=== PATIENT | female | born 1965 | race Caucasian/White ===

== ENCOUNTER 2022-10-23 21:24 | Observation (INO) | payer OTHER ==
--- OUTSIDE RECORDS SUMMARY | 2022-10-23 21:26 | XMS REPORT | Continuity of Care Document ---
:1965 Author Organization [facility] t Address [address] [facility] [address] [place] [address] Care Team Providers Name Role Phone Unavailable Unavailable Unavailable Problems This patient has no known problems. Allergies, Adverse Reactions, Alerts This patient has no known allergies or adverse reactions. Medications This patient has no known medications. Procedures This patient has no known procedures. Encounters Start End Encounter Admission Attending Care Care Encounter Source Date/Time Date/Time Type Type Clinicians Facility Department ID 2022-10-19 2022-10-19 Outpatient SFA S[facility] [place] 07:27:29 07:27:29 [id number] F Benjamin 2022-10-18 2022-10-18 Outpatient [facility] [place] 10:47:06 10:47:06 [id number] F Benjamin 2022-10-12 2022-10-12 Outpatient SFA [facility] [place] 07:25:56 07:25:56 [id number] F Benjamin 2022-08-13 2022-08-13 Outpatient SFA SFA [id number] [place] 13:05:11 13:05:11 [id number] F Benjamin 2022-08-03 2022-08-03 Outpatient SFA [facility] [place] 07:24:49 07:24:49 [id number] F Benjamin 2022-07-27 2022-07-27 Outpatient SFA SFA [id number] [place] 07:28:13 07:28:13 [id number] F Benjamin 2022-06-16 2022-06-16 Outpatient SFA SFA [id number] [place] 14:52:04 14:52:04 [id number] Benjamin Results This patient has no known results.
[2022-10-23 22:24] LABS: Absolute Lymphocytes (CBC) 4.1 K/uL (0.7-4.9); Hematocrit 43.7 % (36.0-45.0); Lymphocytes % 34.1 % (15.3-44.8); MCV 93.1 fL (80-100); MPV 8.5 fL (7.6-11.3); Platelets 201 thou/uL (152-406); RBC Red Blood Cell Count 4.69 M/uL (3.86-4.86)
[2022-10-23] MEDS ORDERED: MORPHINE 4 MG/ML SYR ONE (22:27)
[2022-10-23] MEDS ORDERED: NITROGLYCERIN 0.4 MG/TAB SL ONE (22:27)
[2022-10-23] MEDS ORDERED: ONDANSETRON 4 MG/2 ML VIAL ONE (22:27)
[2022-10-23 22:39] LABS: Albumin 3.3 g/dL (3.4-5.0); Bilirubin Total 0.6 mg/dL (0.2-1.0); Protein, Total 6.9 g/dL (6.4-8.2); Troponin High Sensitivity 38.1 pg/mL (<58.9)
[2022-10-23 22:40] LABS: Magnesium 2.2 mg/dL (1.6-2.4); Potassium 4.8 mEq/L (3.5-5.1)
--- NOTE | 2022-10-23 22:54 | EDPHYS ---
Physician Documentation [facility] Name: Gila Graham Age: 57 yrs Sex: Female : 1965 Arrival Date: 10/23/2022 Time: 21:24 Bed 17 Private MD: ED Physician Maeve Murcia HPI: 10/23 22:21 This 57 yrs old Female presents to ER via Ambulatory with complaints of Chest Pain, sd2 Chest Tightness, Arm Pain. 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 Denies having symptoms like this previously. No prior cardiac hx or significant risk factors for PE. Denies SOB, n/v or diaphoresis. . Historical: - Allergies: 21:44 Aspirin; ll3 - Home Meds: 21:44 levothyroxine oral [Active]; Lisinopril Oral [Active]; carvedilol oral [Active]; ll3 pantoprazole oral [Active]; Oxybutynin Chloride Oral [Active]; atorvastatin oral [Active]; - PMHx: 21:44 Hypertensive disorder; Hypercholesterolemia; Hypothyroidism; ll3 - PSHx: 21:44 Appendectomy; ll3 - Immunization history:: Client reports having NOT received the Covid vaccine. - Social history:: Smoking status: Patient denies any tobacco usage or history of. ROS: 22:21 Constitutional: Negative for fever, chills, and weight loss, Eyes: Negative for injury, sd2 pain, redness, and discharge. 22:21 Respiratory: Negative for shortness of breath, cough, wheezing. Abdomen/GI: Negative for abdominal pain, nausea, vomiting, diarrhea. MS/Extremity: Negative for injury and deformity, Skin: Negative for injury, rash, and discoloration, Neuro: Negative for headache, numbness and tingling. 22:21 Cardiovascular: Positive for chest pain, Negative for edema, palpitations. Exam: 22:21 Constitutional: This is a well developed, well nourished patient who is awake, alert, sd2 and in no acute distress. Head/Face: Normocephalic, atraumatic. Eyes: EOMI, normal conjunctiva bilaterally Chest/axilla: Normal chest wall appearance and motion. Nontender with no deformity. Cardiovascular: Regular rate and rhythm with a normal S1 and S2. Systolic murmur noted. No rubs or gallops. 2+ distal pulses. Respiratory: Lungs have equal breath sounds bilaterally, clear to auscultation and percussion. No rales, rhonchi or wheezes noted. No increased work of breathing, no retractions or nasal flaring. Abdomen/GI: Soft, non-tender, with normal bowel sounds. No guarding or rebound. No evidence of tenderness throughout. Skin: Warm, dry with normal turgor. Normal color with no rashes, no lesions, and no evidence of cellulitis. MS/ Extremity: Pulses equal, no cyanosis. Neurovascular intact. Full, normal range of motion. Ambulatory without difficulty. Psych: Awake, alert, with orientation to person, place and time. Behavior, mood, and affect are within normal limits. 22:49 ECG was reviewed by the Attending Physician. NSR, rate 100, ST depressions in inferior sd2 leads with TWIs in I and aVL, no STEMI criteria 22:49 ECG was reviewed by the Attending Physician. NSR, rate 85, no STEMI criteria, ST sd2 depressions and TWIs previously seen resolved Vital Signs: 21:41 BP 182 / 73; Pulse 96; Resp 20; Temp 98.3(O); Pulse Ox 98% on R/A; Weight 118.84 kg ll3 (R); Height 5 ft. 5 in. (R); Pain 7/10; 22:24 BP 121 / 62; Pulse 84; Resp 16; Pulse Ox 94% on R/A; Pain 2/10; ll3 22:25 Pain 2/10; ll3 08 00:46 BP 111 / 51; Pulse 62; Resp 18; Pulse Ox 96% on R/A; ll3 01:38 BP 113 / 54; Pulse 73; Resp 16; Pulse Ox 98% on R/A; ll3 10/23 21:41 Body Mass Index 43.60 (118.84 kg, 165.1 cm) ll3 08 21:41 Pain Scale: Adult ll3 22:24 Pain Scale: Adult ll3 22:25 Pain Scale: Adult ll3 MDM: 10/23 21:27 Patient medically screened. sd2 22:21 Differential diagnosis: Differential diagnosis includes but is not limited to: ACS, sd2 DVT/PE, pneumothorax, dissection, musculoskeletal, anxiety, anemia, electrolyte abnormality, pneumonia, CHF, COPD among others. The patient was not given aspirin in the Emergency Department. Aspirin not given, patient refused. Data reviewed: vital signs, nurses notes, lab test result(s), EKG, radiologic studies. I considered the following discharge prescriptions or medication management in the emergency department Medications were administered in the Emergency Department. See MAY. 22:49 HEART Score: History: Highly Suspicious (2), ECG: Significant ST-deviation (2), Age: > sd2 45 and < 65 years (1), Risk Factors: 1 or 2 risk factors (1), Troponin: < or = 1 x Normal Limit (0), Total Score = 6. Consideration of Admission/Observation Patient was admitted/placed on observation. Management of patient was discussed with the following: Hospitalist: Fernando Raman NP. Independent interpretation of the following test(s) in the Emergency Department X-Ray: My interpretation is No acute process noted. Test considered but Not performed: CT: CTA chest for PE. Pt is Wells criteria low risk with no significant risk factors. Care significantly affected by the following chronic conditions: Hypertension. Counseling: I had a detailed discussion with the patient and/or guardian regarding the historical points, exam findings, and any diagnostic results supporting the discharge/admit diagnosis, lab results, radiology results, the need for further work-up and treatment in the hospital. ED course: Labs and imaging reviewed. Labs grossly WNCL with negative troponin. Repeat EKG improved and CXR with no acute process. Pain down to 2/10 after nitro given with improved BP. Due to concerning presentation and abnormal EKG initially, will admit for chest pain. Pt is in agreement with treatment plan at this time. . 10/23 21:38 Order name: CBC with Diff; Complete Time: 01:33 sd2 10/23 21:38 Order name: CMP; Complete Time: 22:42 sd2 10/23 21:38 Order name: Magnesium; Complete Time: 22:42 sd2 10/23 21:38 Order name: Troponin High Sensitivity; Complete Time: 22:42 sd2 10/23 21:38 Order name: BNP; Complete Time: 22:42 sd2 10/24 00:55 Order name: CBC Smear Scan; Complete Time: 01:33 EDMS 10/23 21:38 Order name: XRAY Chest (1 view); Complete Time: 23:12 sd2 10/23 21:38 Order name: EKG - Nurse/Tech; Complete Time: 21:55 sd2 10/23 21:38 Order name: EKG - Nurse/Tech: Repeat at 2145; Complete Time: 22:24 sd2 Administered Medications: 22:24 Drug: morphine IVP or IV 4 mg Route: IVP; Infused Over: 4 mins; Site: right antecubital;ll3 22:55 Follow up: Response: No adverse reaction; Marked relief of symptoms; Pain is decreased ll3 22:24 Drug: Ondansetron IVP 4 mg Route: IVP; Site: right antecubital; ll3 22:55 Follow up: Response: No adverse reaction ll3 22:24 Drug: Nitroglycerin Sublingual 0.4 mg Route: Sublingual; ll3 22:25 Follow up: Pain 2/10 Adult; Response: No adverse reaction; Pain is decreased ll3 23:44 Not Given (Duplicate Order): Tums PO Chewable Tablet 800 mg PO once ll3 23:50 Drug: Tums PO Chewable Tablet 1000 mg Route: PO; ll3 10/24 01:50 Follow up: Response: No adverse reaction; Marked relief of symptoms ll3 00:58 Drug: NS 0.9% IV 500 ml Route: IV; Rate: bolus; Site: right antecubital; ll3 01:50 Follow up: Response: No adverse reaction; IV Status: Completed infusion; IV Intake: ll3 500ml Disposition Summary: 10/23/22 22:53 Hospitalization Ordered Hospitalization Status: Observation sd2 Provider: Brenton Walker2 Location: Telemetry/MedSurg (observation) sd2 Condition: Stable sd2 Problem: new sd2 Symptoms: have improved sd2 Bed/Room Type: Standard ne2 Room Assignment: 205(10/24/22 00:57) pf1 Diagnosis - Chest pain, unspecified sd2 - Elevated blood pressure reading sd2 Forms: - Medication Reconciliation Form sd2 - SBAR form sd2 - Leadership Thank You Letter sd2 Signatures: Dispatcher [employer] EDMS Fernando Raman FNP-C RISK CONTROL SPECIALIST-Sridevi1 Gio Berrios RN RN ll3 Maeve Murcia MD MD sd2 Feldman, Lisa, RN RN pf1 Corrections: (The following items were deleted from the chart) 10/23 21:49 21:44 Allergies: No Known Allergies; ll3 ll3 10/24 00:57 10/23 22:53 sd2 pf1
--- NOTE | 2022-10-23 22:54 | ER ---
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 Coronavirus screen: Vaccine status: Patient reports being unvaccinated. At this time, the client does not indicate any symptoms associated with coronavirus-19. Ebola Screen: No symptoms or risks identified at this time. Initial Sepsis Screen: Does the patient meet any 2 criteria? HR > 90 bpm. Does the patient have a suspected source of infection? No. Patient's initial sepsis screen is negative. Risk Assessment: Do you want to hurt yourself or someone else? Patient reports no desire to harm self or others. Onset of symptoms was October 23, 2022. 21:41 Method Of Arrival: Ambulatory ll3 21:41 Acuity: VALERIE 2 ll3 Triage Assessment: 21:44 General: Appears uncomfortable, Behavior is cooperative, anxious, crying. Pain: ll3 Complains of pain in chest Pain radiates to left arm and neck Pain currently is 7 out of 10 on a pain scale. Pain began 30 min ago. Is continuous. Neuro: Level of Consciousness is awake, alert, obeys commands, Oriented to person, place, time, situation. Cardiovascular: Patient's skin is warm and dry. Chest pain is described as mild, is located in left anterior chest wall radiates to left arm(s) jaw(s) began 30 minutes prior to arrival episodes are continuous. Respiratory: Reports shortness of breath Respiratory effort is even, unlabored, Respiratory pattern is regular, symmetrical. Derm: Skin is pink, warm \T\ dry. Historical: - Allergies: 21:44 Aspirin; ll3 - Home Meds: 21:44 levothyroxine oral [Active]; Lisinopril Oral [Active]; carvedilol oral [Active]; ll3 pantoprazole oral [Active]; Oxybutynin Chloride Oral [Active]; atorvastatin oral [Active]; - PMHx: 21:44 Hypertensive disorder; Hypercholesterolemia; Hypothyroidism; ll3 - PSHx: 21:44 Appendectomy; ll3 - Immunization history:: Client reports having NOT received the Covid vaccine. - Social history:: Smoking status: Patient denies any tobacco usage or history of. Screenin:51 [facility] ED Fall Risk Assessment (Adult) History of falling in the last 3 months, ll3 including since admission No falls in past 3 months (0 pts) Confusion or Disorientation No (0 pts) Intoxicated or Sedated No (0 pts) Impaired Gait No (0 pts) Mobility Assist Device Used No (0 pt) Altered Elimination No (0 pt) Score/Fall Risk Level 0 - 2 = Low Risk Oriented to surroundings, Maintained a safe environment, Educated pt \T\ family on fall prevention, incl call for assistance when getting out of bed. Abuse screen: Denies threats or abuse. Denies injuries from another. Nutritional screening: No deficits noted. Tuberculosis screening: No symptoms or risk factors identified. Assessment: 21:44 General: See triage assessment. ll3 Vital Signs: 21:41 BP 182 / 73; Pulse 96; Resp 20; Temp 98.3(O); Pulse Ox 98% on R/A; Weight 118.84 kg ll3 (R); Height 5 ft. 5 in. (R); Pain 7/10; 22:24 BP 121 / 62; Pulse 84; Resp 16; Pulse Ox 94% on R/A; Pain 2/10; ll3 22:25 Pain 2/10; ll3 10/24 00:46 BP 111 / 51; Pulse 62; Resp 18; Pulse Ox 96% on R/A; ll3 01:38 BP 113 / 54; Pulse 73; Resp 16; Pulse Ox 98% on R/A; ll3 10/23 21:41 Body Mass Index 43.60 (118.84 kg, 165.1 cm) ll3 10/23 21:41 Pain Scale: Adult ll3 22:24 Pain Scale: Adult ll3 22:25 Pain Scale: Adult ll3 ED Course: 10/23 21:24 Patient arrived in ED. jj6 21:27 Maeve Murcia MD is Attending Physician. sd2 21:40 Gio Berrios RN is Primary Nurse. ll3 21:44 Triage completed. ll3 21:44 Arm band placed on Patient placed in an exam room, on a stretcher, on front desk monitor, ll3 on pulse oximetry. EKG completed in triage. Results shown to MD. 21:51 Patient has correct armband on for positive identification. Placed in gown. Bed in low ll3 position. Call light in reach. Side rails up X 1. Adult w/ patient. Client placed on continuous cardiac and pulse oximetry monitoring. NIBP monitoring applied. 21:51 No provider procedures requiring assistance completed. Patient maintains SpO2 ll3 saturation greater than 95% on room air. 22:24 Inserted saline lock: 20 gauge in right antecubital area, using aseptic technique. ll3 Blood collected. 22:35 XRAY Chest (1 view) In Process Unspecified. EDMS 22:53 Brenton Walker MD is Hospitalizing Provider. sd2 23:24 [facility]C [facility] 10/24 01:49 Patient admitted, IV remains in place. ll3 Administered Medications: 10/23 22:24 Drug: morphine IVP or IV 4 mg Route: IVP; Infused Over: 4 mins; Site: right antecubital;ll3 22:55 Follow up: Response: No adverse reaction; Marked relief of symptoms; Pain is decreased ll3 22:24 Drug: Ondansetron IVP 4 mg Route: IVP; Site: right antecubital; ll3 22:55 Follow up: Response: No adverse reaction ll3 22:24 Drug: Nitroglycerin Sublingual 0.4 mg Route: Sublingual; ll3 22:25 Follow up: Pain 2/10 Adult; Response: No adverse reaction; Pain is decreased ll3 23:44 Not Given (Duplicate Order): Tums PO Chewable Tablet 800 mg PO once ll3 23:50 Drug: Tums PO Chewable Tablet 1000 mg Route: PO; ll3 10/24 01:50 Follow up: Response: No adverse reaction; Marked relief of symptoms ll3 00:58 Drug: NS 0.9% IV 500 ml Route: IV; Rate: bolus; Site: right antecubital; ll3 01:50 Follow up: Response: No adverse reaction; IV Status: Completed infusion; IV Intake: ll3 500ml Medication: 10/23 22:25 VIS not applicable for this client. ll3 Intake: 10/24 01:50 IV: 500ml; Total: 500ml. ll3 Outcome: 10/23 22:53 Decision to Hospitalize by Provider. sd2 10/24 01:49 Admitted to Med/surg accompanied by nurse, via wheelchair, room 205, with chart, Report ll3 called to BENITO Dutton Condition: stable Instructed on the need for admit, Demonstrated understanding of instructions. 01:50 Patient left the ED. ll3 Signatures: Dispatcher [employer] EDMS Fernando Raman, ARCHIVIST-C ARCHIVIST-Cla1 Armida Boykin6 Gio Berrios RN RN ll3 Maeve Murcia MD MD sd2 Corrections: (The following items were deleted from the chart) 10/23 21:49 21:44 Allergies: No Known Allergies; ll3 ll3
--- NOTE | 2022-10-23 23:11 | RAD REPORT ---
EXAM DESCRIPTION: [place] Single View10/23/2022 10:34 pm CLINICAL HISTORY: CHEST PAIN COMPARISON: CHEST PA AND LAT 2 VIEW dated 08/18/2011 TECHNIQUE: Portable AP view of the chest. FINDINGS: The lungs are clear. No pneumothorax or effusion. The cardiomediastinal contours are unrem arkable. IMPRESSION: No acute cardiopulmonary process.
[2022-10-23] MEDS ORDERED: CALCIUM CARBONATE CHEW 500MG TAB ONE (23:53)
--- NOTE | 2022-10-23 23:57 | P.HP ---
Certification for Inpatient Patient admitted to: Observation With expected LOS: <2 Midnights Patient will require the following post-hospital care: None Practitioner: I am a practitioner with admitting privileges, knowledge of patient current condition, hospital course, and medical plan of care. Services: Services provided to patient in accordance with Admission requirements found in Title 42 Section 412.3 of the Code of Federal Regulations Patient History Date of Service: 10/23/22 Reason for admission: Chest pain History of Present Illness: 57-year-old female with history of hypothyroidism, hypertension, hyperlipidemia presents emergency department for plan of chest pain. She reports onset of sharp chest pain radiating to her left jaw and left arm that occurred at rest with no other associated symptoms. It occurred this evening about 30 minutes after eating fried chicken. She does admit to some burning/reflux symptoms the last few days. Her pain improved after IV morphine in the ED, last tress test was around 3 years ago has never had a heart catheterization. Initial high- sensitivity troponin 38.1. EKG without STEMI criteria she will need to be admitted for ACS rule out. Allergies aspirin Allergy (Verified 08/14/11 17:16) Itching/Hives/Rash - Past Medical/Surgical History -: Hypertension -: Hyperlipidemia -: Hypothyroidism -: Appendectomy Psychosocial/ Personal History: Patient lives at home with her - Family History Family History: Reviewed- Non-Contributory - Social History Smoking Status: Never smoker Alcohol use: No CD- Drugs: No Caffeine use: Yes Place of Residence: Home Review of Systems 10-point ROS is otherwise unremarkable Cardiovascular: Chest Pain Physical Examination - Physical Exam General: Alert, In no apparent distress, Oriented x3, Obese HEENT: Atraumatic, PERRLA, Mucous membr. moist/pink, EOMI, Sclerae nonicteric Neck: Supple, 2+ carotid pulse no bruit, No LAD, Without JVD or thyroid abnormality Respiratory: Clear to auscultation bilaterally, Normal air movement Cardiovascular: Regular rate/rhythm, Normal S1 S2 Gastrointestinal: Normal bowel sounds, No tenderness Musculoskeletal: No tenderness Integumentary: No rashes Neurological: Normal gait, Normal speech, Normal strength at 5/5 x4 extr, Normal tone, Normal affect Lymphatics: No axilla or inguinal lymphadenopathy - Studies Laboratory Data (last 24 hrs) 10/23/22 10/23/22 22:07 22:07 WBC 12.10 H Hgb 14.8 Hct 43.7 Plt Count 201 Sodium 134 L Potassium 4.8 BUN 19 H Creatinine 1.27 H Glucose 165 H Magnesium 2.2 Total Bilirubin 0.6 AST 25 ALT 29 Alkaline Phosphatase 104 Assessment and Plan - Plan Assessment: Chest pain rule out ACS GERD Hypertension Hyperlipidemia Hypothyroidism Plan: Chest pain rule out ACS Pain started at rest about 30 minutes after eating radiated to left jaw, left arm, nonreproducible Troponin, monitor on telemetry, cardiology consult. Allergic to aspirin continue statin Does report some increase GERD/burning pain the past few days. Continue PPI. GERD Continue daily PPI reports she had a EGD earlier this year with mild gastritis. Hypertension Hyperlipidemia Hypothyroidism Continue home medications once verified. DVT PPX: Lovenox Code status: Full Discharge Plan: Home Plan to discharge in: 24 Hours - Advance Directives Does patient have a Living Will: No Does patient have a Durable POA for Healthcare: No - Code Status/Comfort Care Code Status Assessed: Yes (Full code) Critical Care: No Time Spent Managing Pts Care (In Minutes): 55
[2022-10-24 00:54] LABS: Platelet Estimate ADEQ; White Blood Cell Scan OK (OK)
[2022-10-24 00:55] LABS: Blood Morphology Comment NOT SEEN (NOT SEEN)
[2022-10-24] MEDS ORDERED: NA CHLORIDE 0.9% 500 ML ONE (01:06)
[2022-10-24] MEDS ORDERED: ONDANSETRON 4 MG/2 ML VIAL IV PRN (02:23)
[2022-10-24] MEDS: NA CHLORIDE 0.9% 1,000 ML IV SCH ×2 (02:23→11:09)
[2022-10-24] MEDS ORDERED: MORPHINE 2 MG/ML SYR IV PRN (02:23)
[2022-10-24 02:34] VITALS: BMI 43.6
[2022-10-24 03:57] LABS: Absolute Lymphocytes (CBC) 3.6 K/uL (0.7-4.9); Lymphocytes % 35.5 % (15.3-44.8); MCV 92.7 fL (80-100); MPV 8.1 fL (7.6-11.3); Platelets 197 thou/uL (152-406)
[2022-10-24 04:34] LABS: Potassium 4.3 mEq/L (3.5-5.1)
[2022-10-24 04:36] LABS: Thyroid Stimulating Hormone 4.52 uIU/mL (0.358-3.740)
[2022-10-24 04:37] LABS: Troponin High Sensitivity 582.4 pg/mL (<58.9)
[2022-10-24] MEDS ORDERED: HEPARIN 5000 UNIT/ML 1 ML VIAL IV ONE (05:01)
[2022-10-24] MEDS: ACETAMINOPHEN 325 MG TABLET PO PRN ×2 (05:31→18:43)
[2022-10-24] MEDS: PANTOPRAZOLE 40MG TABLET PO SCH (05:31)
[2022-10-24] MEDS: HEPARIN/D5W 25,000 UNIT/500 ML BAG IV SCH (06:18)
--- NOTE | 2022-10-24 07:09 | P.PN ---
Date of Service: 10/24/22 Subjective: Feeling better today no acute events overnight mild chest discomfort ROS: 10 point ROS as noted above, otherwise negative Physical Exam: GEN: Alert, oriented, NAD HEENT: Normal conjunctiva, sclera anicteric CV: Regular rate and rhythm, no edema, murmur Pulm: Nonlabored respirations on room air ABD: Soft, nontender, nondistended Neuro: Normal speech, normal affect vitals reviewed Problem List: Chest pain, NSTEMI GERD Hypertension Hyperlipidemia Hypothyroidism Chest pain, NSTEMI last tress test was ~3 years ago. never had a heart cath Patient with allergy to aspirin troponins elevated, cont to trend monitor on telemetry Cardiology consulted cont statin cont IV heparin cont IV fluids may need stress test / cath - pending cardiac eval GERD report some increase GERD/burning pain the past few day EGD earlier 2022 with mild gastritis Continue PPI Hypertension Hyperlipidemia Hypothyroidism confirm home meds, Restart as appropriate VTE: IV heparin Code: Full Dispo: Home ~1-2 days Pending cardio eval
[2022-10-24] MEDS ORDERED: ENOXAPARIN 40 MG/0.4 ML SQ SCH (09:00)
[2022-10-24] MEDS ORDERED: SIMETHICONE 80 MG TAB PO PRN (15:47)
--- NOTE | 2022-10-24 20:21 | CON ---
Date of Consultation: 10/24/2022 Reason For Consultation: Chest pain with elevated troponin. History Of Present Illness: A 57-year-old female with obesity, hypertension, dyslipidemia, hypothyro idism, presented with chest pain, retrosternal, radiates to her neck, jaw, and left arm and initially with activities and now at rest. Since hospitalization, she is pain free. Denies having any histor y of cardiac disease before. Past Medical History: As outlined above in the HPI. Medications: Refer reconciliation sheet for detailed list. Allergies: SHE IS ALLERGIC TO ASPIRIN. Family History: No premature coronary artery disease or cancer. Social History: She does not smoke or drink. Does not use any drugs. Review of Systems: All systems reviewed are negative except for mentioned in HPI. Physical Examination: Vital Signs: Reviewed. Head and Neck: Pupils are equal, reactive to light. Intact eye movements. No JVD. No cervical lym phadenopathy. Neck is supple. Thyroid is not enlarged. Lungs: Clear to auscultation bilaterally. No rhonchi, wheezing, or crackles. No accessory muscle u se. Heart: Regular rate and rhythm. No extra sounds. Abdomen: Soft, nontender. Bowel sounds positive. No organomegaly. No masses or hernia. No rigidi ty or rebound. Extremities: No edema, clubbing, or cyanosis. Intact pulses. Skin: No rash. Neurologic: Alert, awake, oriented x3. No acute or focal deficits appreciated. Investigations: Troponin peaked at 1016 and now is trending down. BUN 17, creatinine 1.04. Hemoglo bin 13.2. LDL cholesterol 65. Assessment/recommendations: 1.Non-ST elevation myocardial infarction. Typical symptoms with elevated troponin. Troponin is rosenda nding down now. Continue IV heparin and plan for coronary angiogram tomorrow. Based on the anatomy, we will decide. She is allergic to aspirin. We will find out more details about that, and if the s ituation is significant, needs an urgent stent, I will plan to put her on Brilinta and maybe plan to desensitize her to aspirin as well. 2.Dyslipidemia. Continue Lipitor. 3.Hypertension. Blood pressure is controlled. Continue current medications. Please obtain echo in the morning. SR/MODL Voice ID: [id number] Report ID: [id number]
[2022-10-24] MEDS ORDERED: ATORVASTATIN 40 MG TAB PO SCH (21:00)
[2022-10-24] MEDS ORDERED: CETIRIZINE HCL 5 MG TABLET PO PRN (21:54)
[2022-10-25 01:40] LABS: Absolute Lymphocytes (CBC) 3.7 K/uL (0.7-4.9); Hematocrit 39.4 % (36.0-45.0); Lymphocytes % 39.8 % (15.3-44.8); MCV 93.4 fL (80-100); MPV 8.3 fL (7.6-11.3); Platelets 196 thou/uL (152-406); RBC Red Blood Cell Count 4.22 M/uL (3.86-4.86)
[2022-10-25 01:56] LABS: Potassium 4.4 mEq/L (3.5-5.1)
[2022-10-25] MEDS: ACETAMINOPHEN 325 MG TABLET PO PRN ×2 (05:52→13:51)
[2022-10-25] MEDS: PANTOPRAZOLE 40MG TABLET PO SCH (05:52)
[2022-10-25] MEDS: HEPARIN/D5W 25,000 UNIT/500 ML BAG IV SCH (05:53)
--- NOTE | 2022-10-25 07:14 | P.PN ---
Date of Service: 10/25/22 Subjective: Doing okay no acute events overnight awaiting for heart cath later today +headache ROS: 10 point ROS as noted above, otherwise negative Physical Exam: GEN: Alert, oriented, NAD HEENT: Normal conjunctiva, sclera anicteric CV: Regular rate and rhythm, no edema, murmur Pulm: Nonlabored respirations on room air ABD: Soft, nontender, nondistended Neuro: Normal speech, normal affect vitals reviewed Problem List: Chest pain, NSTEMI GERD Hypertension Hyperlipidemia Hypothyroidism Chest pain, NSTEMI last stress test was ~3 years ago. never had a heart cath Patient with allergy to aspirin troponins elevated, peak: 1016 monitor on telemetry Cardiology consulted cont statin cont IV heparin tentative plan for heart cath today 10/25 GERD report some increase GERD/burning pain the past few day EGD earlier 2022 with mild gastritis Continue PPI Hypertension Hyperlipidemia Hypothyroidism confirm home meds, Restart as appropriate VTE: IV heparin Code: Full Dispo: Home ~1 day Pending heart cath
[2022-10-25] MEDS ORDERED: NA CHLORIDE 0.9% 500 ML ONE (11:49)
[2022-10-25] MEDS ORDERED: HEPA 1000U/500MLS 2,000 UNIT/1,000 ML BAG IV ONE (12:11)
[2022-10-25] MEDS ORDERED: CLOPIDOGREL 75 MG TABLET ONE (12:12)
[2022-10-25] MEDS ORDERED: MIDAZOLAM HCL 2 MG/2 ML INJ ONE (12:12)
[2022-10-25] MEDS ORDERED: VERAPAMIL HCL 10 MG/4 ML VIAL IV ONE (12:12)
[2022-10-25] MEDS ORDERED: LIDOCAINE 1% 20 ML MDV ONE (12:12)
[2022-10-25] MEDS ORDERED: HEPARIN 5000 UNIT/ML 1 ML VIAL ONE (12:12)
[2022-10-25] MEDS ORDERED: HEPARIN 10,000 UNIT/10 ML VIAL IV ONE (12:13)
[2022-10-25] MEDS ORDERED: ATROPINE SULF 1 MG/10 ML SYR IV ONE (12:13)
[2022-10-25] MEDS ORDERED: TICAGRELOR 90 MG TABLET PO ONE (12:13)
[2022-10-25] MEDS ORDERED: NITROGLYCERIN 100 MCG/ML SYR (for cath lab use only) IV ONE (12:13)
[2022-10-25] MEDS ORDERED: ASPIRIN 325 MG TAB ONE (12:13)
[2022-10-25] MEDS ORDERED: FENTANYL CITR 100 MCG/2 ML ONE (12:14)
[2022-10-25] MEDS ORDERED: ACETAMINOPHEN 325 MG TABLET ONE (13:57)
--- NOTE | 2022-10-25 15:08 | RAD REPORT ---
EXAM DESCRIPTION: NM - Vent Perfusion VQ Scan - 10/25/2022 2:55 pm CLINICAL HISTORY: Shortness of breath COMPARISON: October 25, 2022 x-ray TECHNIQUE: 5.9 Mci Xe133 was administered by inhalation. First breath, equilibrium, and washout images of the l ungs obtained 18.9 millicuries Technetium-99 MAA was administered intravenously. Anterior, posterior, lateral and o blique views of the lungs were taken. FINDINGS: The lungs demonstrate relatively homogeneous radiotracer activity on ventilation and perfu amairani sequences. No mismatched segmental or lobar perfusion defects are seen. IMPRESSION: No evidence of a pulmonary embolus
[2022-10-25 15:12] VITALS: O2SAT 99
--- NOTE | 2022-10-25 15:33 | RAD REPORT ---
EXAM DESCRIPTION: [place] Single View10/25/2022 2:57 pm CLINICAL HISTORY: Shortness breath COMPARISON: October 23, 2022 FINDINGS: The lungs appear clear of acute infiltrate. The heart is normal size IMPRESSION: No acute abnormalities displayed
[2022-10-25 17:07] VITALS: BP 116/58; TEMP 97.9
--- NOTE | 2022-10-25 18:01 | EKG ---
Test Date: 2022-10-23 Test Time: 21:33:54 [employer] Power [employer] Operator: MINDI MEASUREMENT RESULTS: Intervals: Rate: 100 HI: 168 QRSD: 82 QT: 392 QTc: 505 Proctor: P: 74 HI: 168 QRS: 19 T: 94 INTERPRETIVE STATEMENTS: Normal sinus rhythm Inferior infarct, age undetermined Anteroseptal infarct, age undetermined Prolonged QT Abnormal ECG Compared to ECG 08/18/2011 09:00:33 Myocardial infarct finding now present Prolonged QT interval now present Electronically Signed On 10-25-22 17:57:34 CDT by Blair Domingo
--- NOTE | 2022-10-25 18:01 | EKG ---
Test Date: 2022-10-23 Test Time: 22:12:14 Electric[employer]: KOURTNEY MEASUREMENT RESULTS: Intervals: Rate: 85 LA: 176 QRSD: 82 QT: 410 QTc: 487 Varna: P: 53 LA: 176 QRS: 2 T: 77 INTERPRETIVE STATEMENTS: Normal sinus rhythm Inferior infarct, age undetermined Cannot rule out Anteroseptal infarct, age undetermined Abnormal ECG Compared to ECG 10/23/2022 21:33:54 Prolonged QT interval no longer present Myocardial infarct finding still present Electronically Signed On 10-25-22 17:57:30 CDT by Blair Domingo
--- NOTE | 2022-10-25 20:54 | P.DS ---
Admission Date: 10/23/22 Discharge Date: 10/25/22 Disposition: ROUTINE DISCHARGE Discharge Condition: GOOD Reason for Admission: Chest pain Brief History of Present Illness: 57yo F, PMH: HTN, HLD, hypothyroidism, obesity presents emergency department for plan of chest pain. She reports onset of sharp chest pain radiating to her left jaw and left arm that occurred at rest with no other associated symptoms. It occurred 30 minutes after eating fried chicken. She does admit to some burning/reflux symptoms the last few days. Her pain improved after IV morphine in the ED, last tress test was around 3 years ago has never had a heart catheterization. Initial high- sensitivity troponin 38.1. EKG without STEMI criteria she will need to be admitted for ACS rule out. Hospital Course: Problem List: Chest pain, NSTEMI GERD Hypertension Hyperlipidemia Hypothyroidism Patient presented to ED due to chest pain. EKG without ST changes. Chest x-ray without any acute findings. Her description of her pain was concerning for ACS so she was admitted for further evaluation. She was noted to have increase troponin levels that peaked ~1000 before improving. Given her symptoms and lab findings, Cardiology was consulted, and performed a cardiac catheterization. Cath revealed normal coronary arteries and she did not require any intervention. VQ scan was performed and no pulmonary embolus was detected. She had resolution of her chest pain at time of admission and did not have any further chest pain like she did at home. She did report a separate / different type of chest discomfort which she ffelt is the same as prior acid reflux pains. Recommend to continue taking home medications as previously prescribed. Unclear on the etiology of her chest pain and rise in troponin. Follow up with PCP within 1 week Follow up with Cardiology in a few weeks Discussed general lifestyle changes to lower risk of further cardiac events. Physical Exam: GEN: Alert, oriented, NAD HEENT: Normal conjunctiva, sclera anicteric CV: Regular rate and rhythm, no edema, murmur Pulm: Nonlabored respirations on room air ABD: Soft, nontender, nondistended Neuro: Normal speech, normal affect Vital Signs/Physical Exam: Temp Pulse Resp BP Pulse Ox 97.9 F 62 16 116/58 L 97 10/25/22 16:00 10/25/22 16:00 10/25/22 16:00 10/25/22 16:00 10/25/22 16:00 Laboratory Data at Discharge: WBC 9.40 thou/uL (4.3-10.9) 10/25/22 01:28 Hgb 13.2 g/dL (12.0-15.0) 10/25/22 01:28 Hct 39.4 % (36.0-45.0) 10/25/22 01:28 Plt Count 196 thou/uL (152-406) 10/25/22 01:28 APTT Cancelled 10/25/22 15:00 Sodium 135 mEq/L (136-145) L 10/25/22 01:28 Potassium 4.4 mEq/L (3.5-5.1) 10/25/22 01:28 BUN 12 mg/dL (7-18) 10/25/22 01:28 Creatinine 1.00 mg/dL (0.55-1.02) 10/25/22 01:28 Glucose 92 mg/dL (74-106) 10/25/22 01:28 Magnesium 2.2 mg/dL (1.6-2.4) 10/23/22 22:07 Total Bilirubin 0.6 mg/dL (0.2-1.0) 10/23/22 22:07 AST 25 U/L (15-37) 10/23/22 22:07 ALT 29 U/L (13-56) 10/23/22 22:07 Alkaline Phosphatase 104 U/L (45-117) 10/23/22 22:07 Triglycerides 300 mg/dL (<150) H 10/24/22 03:35 Cholesterol 159 mg/dL (<200) 10/24/22 03:35 HDL Cholesterol 34 mg/dL (40-60) L 10/24/22 03:35 Cholesterol/HDL Ratio 4.68 10/24/22 03:35 Home Medications: Atorvastatin Calcium 40 mg PO DAILY 10/24/22 Carvedilol [Coreg] 3.125 mg PO DAILY 10/24/22 Cyclobenzaprine [Flexeril*] 10 mg PO BEDTIME PRN 10/24/22 Diclofenac Sodium 50 mg PO DAILY PRN 10/24/22 Levothyroxine [Synthroid*] 75 mcg PO [id number] 10/24/22 Lisinopril [Zestril] 20 mg PO DAILY 10/24/22 Oxybutynin Chloride [Oxybutynin Chloride ER] 10 mg PO DAILY 10/24/22 Pantoprazole [Protonix Tab*] 40 mg PO DAILY 10/24/22 Physician Discharge Instructions: Patient presented to ED due to chest pain. EKG without ST changes. Chest x-ray without any acute findings. Her description of her pain was concerning for ACS so she was admitted for further evaluation. She was noted to have increase troponin levels that peaked ~1000 before improving. Given her symptoms and lab findings, Cardiology was consulted, and performed a cardiac catheterization. Cath revealed normal coronary arteries and she did not require any intervention. VQ scan was performed and no pulmonary embolus was detected. She had resolution of her chest pain at time of admission and did not have any further chest pain like she did at home. She did report a separate / different type of chest discomfort which she ffelt is the same as prior acid reflux pains. Recommend to continue taking home medications as previously prescribed. Unclear on the etiology of her chest pain and rise in troponin. Follow up with PCP within 1 week Follow up with Cardiology in a few weeks Discussed general lifestyle changes to lower risk of further cardiac events. Time spent managing pt's care (in minutes): 45
--- NOTE | 2022-10-25 23:08 | PN ---
Date of Progress Note: 10/25/2022 Subjective: Seen by bedside. Doing clinically well, status post coronary angiogram. No significant coronary artery disease. Review of Systems: No chest pain, shortness of breath, orthopnea, cough. No nausea, vomiting, diarrhea. All other syst ems reviewed are negative. Physical Examination: Vital Signs: Reviewed. Head and Neck: Pupils are equal, reactive to light. Intact eye movements. No JVD. No cervical lym phadenopathy. Neck is supple. Thyroid is not enlarged. Lungs: Clear to auscultation bilaterally. No rhonchi, wheezing, or crackles. No accessory muscle u se. Heart: Regular rate and rhythm. No extra sounds. Abdomen: Soft, nontender. Bowel sounds positive. No organomegaly. No masses or hernia. No rigidi ty or rebound. Extremities: No edema, clubbing, cyanosis. Intact pulses. Skin: No rash. Neurologic: Alert, awake, oriented x3. No acute focal deficits appreciated. Investigations: BUN 12, creatinine 1.0. Troponin peaked at 1016 down to 569. LDL cholesterol is 65 and hemoglobin is 13.2. Assessment/recommendations: 1.Elevated troponin with chest pain. Coronary angiogram did not show any significant disease today and V/Q scan is negative for pulmonary embolism. Etiology is not very clear. Could be dehydration a s she was in acute renal failure when she came in. From cardiology standpoint, patient can be relea sed. I recommend baby aspirin, atorvastatin, and close followup with the office. 2.Dyslipidemia. Continue statin. 3.Acute renal failure due to dehydration, resolved. SR/MODL Voice ID: [id number] Report ID: [id number]
--- NOTE | 2022-10-26 03:14 | OP ---
Date of Procedure: 10/25/2022 Surgeon: GILLES STEPHEN Indication: 1.Selective coronary angiogram. 2.Left heart catheterization. Indication: [id number] myocardial infarction. Access: Right radial artery 6-Bermudian closed with TR band. Complications: None. Bleeding: Less than 20 mL. Description Of Procedure: After risks, benefits, and alternatives were explained, the patient agreed to the procedure and signed informal consent. The patient was brought into the cardiac catheterizat ion laboratory, prepped and draped in usual sterile fashion. Then I accessed right radial artery usi ng pediatric micropuncture kit, placed 6-Bermudian Slender sheath and took 5-Bermudian Pearson 4 catheter int o the aortic root and engaged the left main, took standard views and then the RCA, took standard view s and then exchanged for angled pigtail and across the aortic valve over the wire, measured the LVEDP and LV-gram was performed and then pullback not recorded any gradient. I then removed the catheter and sheath, placed TR band with good hemostasis. Findings: 1.Left main is large and normal. 2.LAD: Proximal 30%, the rest of LAD with luminal irregularities and normal diagonal branches. 3.Left circumflex is with luminal irregularities. 4.RCA: Large and dominant. No significant disease. 5.Elevated LVEDP at 24 mmHg. 6.Normal LVEF 65% with normal wall motion on LV gram. Conclusion: 1.Mild nonobstructive coronary artery disease. 2.Elevated LVEDP. 3.Normal LVEF with normal wall motion. Recommendation: Medical management. SR/MODL Voice ID: [id number] Report ID: [id number]
== END 2022-10-25 19:00 | disposition home or self-care (01) ==
LOC: ER 21:24 → ERHOLD 23:50 → 2ND 10-24 01:09
PROVIDERS: ADMIT Hospitalist; ATTEND Hospitalist
DX: I21.4 Non-ST elevation (NSTEMI) myocardial infarction (principal); I25.10 Atherosclerotic heart disease of native coronary artery without angina pectoris; N17.9 Acute kidney failure, unspecified; E86.0 Dehydration; I10 Essential (primary) hypertension; E78.5 Hyperlipidemia, unspecified; E03.9 Hypothyroidism, unspecified; K21.9 Gastro-esophageal reflux disease without esophagitis; K29.70 Gastritis, unspecified, without bleeding; R51.9 Headache, unspecified; E66.9 Obesity, unspecified; Z68.41 Body mass index [BMI] 40.0-44.9, adult; Z79.899 Other long term (current) drug therapy; Z88.6 Allergy status to analgesic agent; Z28.310 Unvaccinated for COVID-19
CPT/HCPCS: 96361; 93005 ×2; 85025 ×3; 80048 ×2; 36415 ×2; 83735; 80061; 85730 ×7; 84443; 84484 ×5; 84439; 80053; 83880; 71045 ×2; 93458; 76937; 78582; 96375; 96374; 99285; C1893; J1644 ×3; J2001; J2250; J3010; J2270; J2405; J7040 ×2; J7030; A9558; A9540; G0378 ×3; J0461